=== PATIENT | male | born 2005 | race Caucasian/White ===

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

== ENCOUNTER 2023-11-11 12:05 | Day surgery (SDC) | payer OTHER ==
[~2023-11-11] VITALS: Ht 177.8 cm; Wt 62.8 kg
[~2023-11-11 12:05] MED LIST: ACETAMINOPHEN500 MG PO; Lactated Ringer's 1,000 ML IV ONE; propofoL 50 ML IV ONE
[2023-11-11] MEDS ORDERED: Lactated Ringer's 1,000 ML IV ONE (13:16)
[2023-11-11] MEDS ORDERED: ePHEDrine Sulfate 50 MG/ML 1ML Injection ONE (14:31)
[2023-11-11 15:48] VITALS: BP 119/77
== END 2023-11-11 15:09 | disposition home or self-care (01) ==
LOC: ORSCSDS 12:05
PROVIDERS: Internal Medicine Gastroenterology
PROC: 0DB98ZX Excision of Duodenum, Via Natural or Artificial Opening Endoscopic, Diagnostic (ICD-10-PCS; principal; 2023-11-11 13:15)
PROC: 0DB58ZX Excision of Esophagus, Via Natural or Artificial Opening Endoscopic, Diagnostic (ICD-10-PCS; principal; 2023-11-11 13:15)
PROC: 0DJD8ZZ Inspection of Lower Intestinal Tract, Via Natural or Artificial Opening Endoscopic (ICD-10-PCS; principal; 2023-11-11 13:15)
DX: R19.4 Change in bowel habit (principal); R10.13 Epigastric pain; F90.9 Attention-deficit hyperactivity disorder, unspecified type
CPT/HCPCS: 88305; J2704; J7120